=== PATIENT | female | born 1945 | race Caucasian/White ===

== ENCOUNTER → 2017-07-05 08:56 | Outpatient (CLI) | payer MEDICARE, BC, SELFPAY ==
--- NOTE | 2017-07-05 | DI.CT.S_ITS ---
PROCEDURE: CT PEL WO CON INDICATIONS: Right hip pain and leg pain TECHNIQUE: Noncontrast 3 mm axial sections acquired through the bony pelvis, with coronal and sagittal reformatting. COMPARISON: [facility], CT, CT PELVIS WITH CONTRAST, 06/13/2017, 15:23. [facility], CT, CT ABDOMEN PELVIS WITH CONTRAST, 06/07/2017, 15:48. [facility], CR, XR PELVIS WITH BILATERAL LATERAL HIPS, 06/06/2017, 16:58. FINDINGS: Image quality: Diagnostic. Bones: There is no acute fracture, dislocation, or suspicious osseous lesion identified involving the osseous structures of the pelvis. Specifically, the right hip is intact. The right pelvic bones are also intact. However, there are at least moderate degenerative changes noted involving the included lower lumbar spine. Mild to moderate degenerative changes of the sacroiliac joints, pubic symphysis, and bilateral hips are present. Soft tissues: A spinal stimulator apparatus is seen overlying the left gluteal region. Areas of subcutaneous edema are identified about the pelvis. No drainable or loculated fluid collections are evident. No subcutaneous soft tissue masses are evident. There is a very small fat containing periumbilical hernia. No inguinal hernias are evident. There is no free fluid, loculated fluid collection or free air within the pelvis. There is aortic and iliac artery atherosclerosis. The urinary bladder is grossly unremarkable, but not well evaluated. The uterus is surgically absent. The bowel loops are nondilated. No pelvic lymphadenopathy is identified. IMPRESSION: 1. Mild to moderate degenerative changes of the right hip without acute fracture. 2. Mild to moderate degenerative changes of the lumbosacral spine, left hip, and pubis symphysis. 3. Subcutaneous edema about the pelvis. No drainable or loculated fluid collections. Dictated by: Hank Morocho M.D. on 07/05/2017 at 8:55 Approved by: Hank Morocho M.D. on 07/05/2017 at 8:59
== END ==
PROVIDERS: Family Provider Internal Medicine; PCP Nurse Practitioner; Visit Provider Internal Medicine
DX: M16.0 Bilateral primary osteoarthritis of hip (principal); M51.37 Other intervertebral disc degeneration, lumbosacral region; R60.0 Localized edema
CPT/HCPCS: 72192

== ENCOUNTER 2017-07-10 15:48 | Emergency (ER) | payer MEDICARE, BC, MEDICAID, SELFPAY ==
[2017-07-10] VITALS (10 sets, daily range): BP systolic 96–112; BP diastolic 48–84; PULSE 97–111; RESP 16–18; TEMP 36.7; O2SAT 98–100; BMI 27.8
--- NOTE | 2017-07-10 17:04 | ED.WEAKNESS ---
HPI - Weakness <Lulu Grider PA-C - Last Filed: 07/10/17 22:06> General Chief complaint: Weakness Stated complaint: low BP Time Seen by Provider: 07/10/17 16:17 Source: patient and family Mode of arrival: EMS Limitations: no limitations History of Present Illness HPI Narrative: This 71-year-old patient with a history of hypertension, CAD, and emphysema is doing rehabilitation at a local assisted living facility due to hip pain and difficulty managing at home. She states she had been feeling fine today but apparently a [facility] staff noted her blood pressure was low. She is on blood pressure medication at home however this was discontinued a few days ago as her blood pressures had been on the low side. Patient admits that she tends not to drink any fluids and does not like drinking water, and has had problems with getting somewhat dehydrated in the past. She states she did eat lunch today. Currently, she denies any chest pain. She states that she has had some ongoing dyspnea with position changes, i.e. moving from sit to stand, but this seems to resolve on its own with just breathing through her nose. This is not acutely changed. She denies any new swelling or pain in her extremities. She denies any nausea, vomiting, abdominal pain or bowel habit changes, and she states she is not sure why she was sent here. Her daughter accompanies her and states that she has seemed normal today Related Data Home Medications Medication Instructions Recorded Confirmed cholecalciferol (vitamin D3) 400 unit PO DAILY #0 09/22/15 07/10/17 [Vitamin D3] albuterol sulfate [Ventolin HFA] 2 puff INHALATION Q6H PRN 07/10/17 07/10/17 ascorbic acid (vitamin C) 1,000 mg PO DAILY 07/10/17 07/10/17 aspirin 81 mg PO DAILY 07/10/17 07/10/17 atorvastatin 20 mg PO QPM 07/10/17 07/10/17 bisacodyl 5 - 10 mg PO PRN PRN 07/10/17 07/10/17 bisacodyl 10 mg DC DAILY 07/10/17 07/10/17 budesonide-formoterol [Symbicort] 2 puff INHALATION BID 07/10/17 07/10/17 calcium carbonate 1 tab PO BID 07/10/17 07/10/17 cyanocobalamin (vitamin B-12) 1,000 mcg PO DAILY 07/10/17 07/10/17 fluticasone [Flonase Allergy 1 spray INTRANASAL DAILY PRN 07/10/17 07/10/17 Relief] food supplemt, lactose-reduced 1 ea PO TID 07/10/17 07/10/17 [Boost] guaifenesin [Mucus Relief] 600 mg PO BID 07/10/17 07/10/17 lidocaine 1 patch TOPICAL DAILY 07/10/17 07/10/17 magnesium hydroxide [Milk of 30 ml PO DAILY PRN 07/10/17 07/10/17 Magnesia] multivitamin with minerals 1 tab PO DAILY 07/10/17 07/10/17 nystatin 1 applic TOPICAL QID 07/10/17 07/10/17 omeprazole 40 mg PO BID 07/10/17 07/10/17 ondansetron HCl 4 mg PO Q8H PRN 07/10/17 07/10/17 oxycodone 5 mg PO Q4H PRN 07/10/17 07/10/17 oxycodone 10 mg PO Q4H PRN 07/10/17 07/10/17 polyethylene glycol 3350 [Miralax] 1 dose PO DAILY PRN 07/10/17 07/10/17 potassium chloride 8 meq PO BID 07/10/17 07/10/17 sodium phosphates [Fleet Enema] 1 ea DC PRN PRN 07/10/17 07/10/17 tiotropium bromide [Spiriva with 1 cap INHALATION DAILY 07/10/17 07/10/17 HandiHaler] Previous Rx's Medication Instructions Recorded duloxetine 30 mg PO BID #180 cap 04/01/16 Allergies Allergy/AdvReac Type Severity Reaction Status Date / Time cat dander [CAT DANDER] Allergy Unknown Verified 07/10/17 16:18 Review of Systems <Lulu Grider PA-C - Last Filed: 07/10/17 22:06> Review of Systems All systems reviewed & are unremarkable except as noted in HPI and below Exam <Lulu Grider PA-C - Last Filed: 07/10/17 22:06> Narrative Exam Narrative: Standing blood pressure is 104/84 with stable pulses GENERAL APPEARANCE: Patient sitting comfortably, in no distress. NECK/THYROID: Neck supple, no JVD. LUNGS: Clear to auscultation bilaterally. HEART: Regular rate and rhythm without murmur, initially there are some single skips, then only occasional,,normal S1, S2, no S3 or S4. ABDOMEN: Soft, NT, ND, + BS x 4 quadrants EXTREMITIES: No cyanosis or edema. No calf tenderness NEUROLOGIC: Alert and oriented, normal speech, and coordination. Initial Vital Signs Initial Vital Signs: Vital Signs Temperature 98.1 F 07/10/17 15:58 Pulse Rate 106 H 07/10/17 15:58 Respiratory Rate 16 07/10/17 15:58 Blood Pressure 100/61 07/10/17 15:58 Pulse Oximetry 99 07/10/17 15:58 <Pradeep Maddox MD - Last Filed: 07/21/17 08:21> Initial Vital Signs Initial Vital Signs: Vital Signs Temperature 98.1 F 07/10/17 15:58 Pulse Rate 106 H 07/10/17 15:58 Respiratory Rate 16 07/10/17 15:58 Blood Pressure 100/61 07/10/17 15:58 Pulse Oximetry 99 07/10/17 15:58 Course <Lulu Grider PA-C - Last Filed: 07/10/17 22:06> Orders Ordered: Discontinued Medications Oxycodone/Acetaminophen (Percocet 5/325) 2 tab PO NOW ONE Stop: 07/10/17 18:37 Last Admin: 07/10/17 18:53 Dose: 2 tab Vital Signs - 8 hr 07/10/17 15:58 07/10/17 16:15 07/10/17 17:00 Temperature 98.1 F Pulse Rate 106 H 106 H 111 H Pulse Rate [Orthostatic Lying] Pulse Rate [Orthostatic Sitting] Pulse Rate [Orthostatic Standing] Respiratory Rate 16 16 16 Blood Pressure 100/61 Blood Pressure [Orthostatic Lying] Blood Pressure [Orthostatic Sitting] Blood Pressure [Orthostatic Standing] Blood Pressure [Right Arm] 102/51 L 96/48 L Pulse Oximetry 99 98 99 07/10/17 18:00 07/10/17 18:30 07/10/17 19:00 Temperature Pulse Rate 102 H 99 H Pulse Rate [Orthostatic Lying] 103 H Pulse Rate [Orthostatic Sitting] 106 H Pulse Rate [Orthostatic Standing] 102 H Respiratory Rate 18 16 Blood Pressure Blood Pressure [Orthostatic Lying] 112/82 H Blood Pressure [Orthostatic Sitting] 112/84 H Blood Pressure [Orthostatic Standing] 108/84 H Blood Pressure [Right Arm] 106/53 L 99/50 L Pulse Oximetry 99 99 07/10/17 19:25 07/10/17 20:00 07/10/17 21:40 Temperature Pulse Rate 104 H 108 H 97 H Pulse Rate [Orthostatic Lying] Pulse Rate [Orthostatic Sitting] Pulse Rate [Orthostatic Standing] Respiratory Rate 16 17 18 Blood Pressure Blood Pressure [Orthostatic Lying] Blood Pressure [Orthostatic Sitting] Blood Pressure [Orthostatic Standing] Blood Pressure [Right Arm] 99/50 L 100/65 97/78 Pulse Oximetry 100 98 99 <Pradeep Maddox MD - Last Filed: 07/21/17 08:21> Orders Ordered: Discontinued Medications Oxycodone/Acetaminophen (Percocet 5/325) 2 tab PO NOW ONE Stop: 07/10/17 18:37 Last Admin: 07/10/17 18:53 Dose: 2 tab Vital Signs - 8 hr 07/10/17 15:58 07/10/17 16:15 07/10/17 17:00 Temperature 98.1 F Pulse Rate 106 H 106 H 111 H Pulse Rate [Orthostatic Lying] Pulse Rate [Orthostatic Sitting] Pulse Rate [Orthostatic Standing] Respiratory Rate 16 16 16 Blood Pressure 100/61 Blood Pressure [Orthostatic Lying] Blood Pressure [Orthostatic Sitting] Blood Pressure [Orthostatic Standing] Blood Pressure [Right Arm] 102/51 L 96/48 L Pulse Oximetry 99 98 99 07/10/17 18:00 07/10/17 18:30 07/10/17 19:00 Temperature Pulse Rate 102 H 99 H Pulse Rate [Orthostatic Lying] 103 H Pulse Rate [Orthostatic Sitting] 106 H Pulse Rate [Orthostatic Standing] 102 H Respiratory Rate 18 16 Blood Pressure Blood Pressure [Orthostatic Lying] 112/82 H Blood Pressure [Orthostatic Sitting] 112/84 H Blood Pressure [Orthostatic Standing] 108/84 H Blood Pressure [Right Arm] 106/53 L 99/50 L Pulse Oximetry 99 99 07/10/17 19:25 07/10/17 20:00 07/10/17 21:40 Temperature Pulse Rate 104 H 108 H 97 H Pulse Rate [Orthostatic Lying] Pulse Rate [Orthostatic Sitting] Pulse Rate [Orthostatic Standing] Respiratory Rate 16 17 18 Blood Pressure Blood Pressure [Orthostatic Lying] Blood Pressure [Orthostatic Sitting] Blood Pressure [Orthostatic Standing] Blood Pressure [Right Arm] 99/50 L 100/65 97/78 Pulse Oximetry 100 98 99 MDM - Weakness <Lulu Grider PA-C - Last Filed: 07/10/17 22:06> Lab Data Attestation: I reviewed the patient's lab results. Result diagrams: 07/10/17 19:10 07/10/17 19:10 Lab Results 07/10/17 07/10/17 07/10/17 Range/Units 19:00 19:10 19:10 WBC 11.9 H (4.5-11.0) X10^3/uL RBC 4.04 (4.0-5.2) X10^6/uL Hgb 13.9 (12.0-16.0) g/dL Hct 40.6 (36-46) % MCV 100.4 H (80-100) fL MCH 34.3 H (26-34) PG MCHC 34.2 (30-36) % RDW 12.6 (11.6-14.8) % Plt Count 158 (150-400) X10^3/uL Neut % (Auto) 63.0 (50-75) % Lymph % (Auto) 26.5 (25-40) % [place] % (Auto) 9.5 (3-14) % Eos % (Auto) 0.4 L (2-4) % Baso % (Auto) 0.6 (0-2) % Neut # (Auto) 7500 H (7390-1835) /uL Sodium 137 (137-145) mmol/L Potassium 3.5 (3.4-5.1) mmol/L Chloride 103.0 (98-107) mmol/L Carbon Dioxide 23.0 (22-32) mmol/L BUN 13.0 (7-17) mg/dL Creatinine 0.50 L (0.52-1.04) mg/dL Estimated GFR > 60.0 (>60) mL/min BUN/Creatinine Ratio 26.0 H (6-22) Glucose 79 L (80-110) mg/dL Calcium 7.1 L (8.4-10.2) mg/dL Magnesium 1.0 L (1.6-2.3) mg/dL Total Protein 5.1 L (6.3-8.2) g/dL Albumin 2.3 L (3.5-5.0) g/dL ECG Data Attestation: I personally reviewed and interpreted this ECG as follows: Prior ECG tracings: not available for review Interpretation: EKG #1 sinus tachycardia, rate 102, left axis deviation, evidence of old inferior DE with Q-waves, QTC upper limit of normal. EKG 2. Sinus tachycardia, rate 111, normal QT. No acute changes aside from single PVC. Patient is asymptomatic MDM Narrative Medical decision making narrative: Patient denied any acute symptoms. She stated that she was feeling well today, and her daughter agreed that she appeared normal. Patient is eating and drinking normally here. I spoke with Dr. Spicer regarding electrolyte abnormalities including low calcium correlating with her low albumin level. Her magnesium is also low. Reviewed EKG findings. She is mildly tachycardic however her beta-gage was stopped due to relatively low blood pressures in the last few days and this may be related. Pulse down to 97 prior to d/c. Her blood pressures appear to be typical of what she has had at the nursing home facility, including stable standing blood pressure. Will discharge back to nursing home and Dr. Spicer will monitor. Order written for magnesium supplementation. <Pradeep Maddox MD - Last Filed: 07/21/17 08:21> Lab Data Lab Results 07/10/17 07/10/17 07/10/17 Range/Units 19:00 19:10 19:10 WBC 11.9 H (4.5-11.0) X10^3/uL RBC 4.04 (4.0-5.2) X10^6/uL Hgb 13.9 (12.0-16.0) g/dL Hct 40.6 (36-46) % MCV 100.4 H (80-100) fL MCH 34.3 H (26-34) PG MCHC 34.2 (30-36) % RDW 12.6 (11.6-14.8) % Plt Count 158 (150-400) X10^3/uL Neut % (Auto) 63.0 (50-75) % Lymph % (Auto) 26.5 (25-40) % [place] % (Auto) 9.5 (3-14) % Eos % (Auto) 0.4 L (2-4) % Baso % (Auto) 0.6 (0-2) % Neut # (Auto) 7500 H (8102-6824) /uL Sodium 137 (137-145) mmol/L Potassium 3.5 (3.4-5.1) mmol/L Chloride 103.0 (98-107) mmol/L Carbon Dioxide 23.0 (22-32) mmol/L BUN 13.0 (7-17) mg/dL Creatinine 0.50 L (0.52-1.04) mg/dL Estimated GFR > 60.0 (>60) mL/min BUN/Creatinine Ratio 26.0 H (6-22) Glucose 79 L (80-110) mg/dL Calcium 7.1 L (8.4-10.2) mg/dL Magnesium 1.0 L (1.6-2.3) mg/dL Total Protein 5.1 L (6.3-8.2) g/dL Albumin 2.3 L (3.5-5.0) g/dL Discharge Plan Departure Patient Disposition: Home, Self-Care Clinical Impression: Tachycardia, Hypocalcemia, Hypomagnesemia Discharge Date/Time: 07/10/17 22:04 Interventions: ED Discharge Assessment Last Done: 07/10/17 22:03 Instructions: DI for Tachycardia Activity Restrictions/Additional Instructions: Your heart rate is a little bit high here today even though you are feeling well. This may be from recently stopping your blood pressure medicine. Your blood pressures appear to be at your baseline, and since you are not having symptoms Dr. Spicer will monitor you at [facility]. Your calcium and magnesium were low today and I have written an order for magnesium supplement. Dr. Spicer will have you continue your calcium and vitamin D and monitor your labwork. Prescriptions: No Action cholecalciferol (vitamin D3) [Vitamin D3] 400 unit Tablet 400 unit PO DAILY Qty: 0 RF: 0 duloxetine 30 MG capsule,delayed release(DR/EC) 30 mg PO BID Qty: 180 RF: 1 atorvastatin 20 mg Tablet 20 mg PO QPM RF: 0 cyanocobalamin (vitamin B-12) 1,000 mcg Tablet 1,000 mcg PO DAILY RF: 0 aspirin 81 mg Tablet,Delayed Release (Dr/Ec) 81 mg PO DAILY RF: 0 polyethylene glycol 3350 [Miralax] 17 gram/dose Powder 1 dose PO DAILY PRN (Reason: Constipation) RF: 0 tiotropium bromide [Spiriva with HandiHaler] 18 mcg capsule, w/inhalation device 1 cap Inhalation DAILY RF: 0 multivitamin with minerals 1 tab PO DAILY RF: 0 ascorbic acid (vitamin C) 1,000 mg Tablet 1,000 mg PO DAILY RF: 0 potassium chloride 8 mEq capsule, extended release 8 meq PO BID RF: 0 omeprazole 40 mg capsule,delayed release(DR/EC) 40 mg PO BID RF: 0 lidocaine 5 % Adhesive Patch,Medicated 1 patch TOPICAL DAILY RF: 0 nystatin 100,000 unit/gram Powder 1 applic TOPICAL QID RF: 0 guaifenesin [Mucus Relief] 400 mg Tablet 600 mg PO BID RF: 0 budesonide-formoterol [Symbicort] 160-4.5 mcg/actuation HFA aerosol inhaler 2 puff Inhalation BID RF: 0 food supplemt, lactose-reduced [Boost] 0.04 gram- 1 kcal/mL Liquid 1 ea PO TID RF: 0 calcium carbonate 1 tab PO BID RF: 0 ondansetron HCl 4 mg Tablet 4 mg PO Q8H PRN (Reason: Nausea And Vomiting) RF: 0 magnesium hydroxide [Milk of Magnesia] 400 mg/5 mL Suspension 30 ml PO DAILY PRN (Reason: Constipation) RF: 0 bisacodyl 10 mg Suppository 10 mg DC DAILY RF: 0 sodium phosphates [Fleet Enema] 19-7 gram/118 mL Enema 1 ea DC PRN PRN (Reason: Constipation) RF: 0 albuterol sulfate [Ventolin HFA] 90 mcg/actuation Hfa Aerosol Inhaler 2 puff INHALATION Q6H PRN (Reason: Wheezing) RF: 0 fluticasone [Flonase Allergy Relief] 50 mcg/actuation [place],Suspension 1 spray INTRANASAL DAILY PRN (Reason: Sinus Symptoms) RF: 0 oxycodone 5 mg Tablet 10 mg PO Q4H PRN (Reason: Pain (Scale Score 7-10)) RF: 0 oxycodone 5 mg Tablet 5 mg PO Q4H PRN (Reason: Pain (Scale Score 4-6)) RF: 0 bisacodyl 5 mg Tablet 5 - 10 mg PO PRN PRN (Reason: Constipation) RF: 0 Referrals: Cheryl Spicer MD [Family Provider] - <Pradeep Maddox MD - Last Filed: 07/21/17 08:21> Cosign ED Attending Cosignature Attestation: The PA/ELECTRONICS SPECIALIST functioned independently for the care of this pt, I was available, but not asked to participate in care. I am unable to determine appropriateness of management without personally examining the pt.
[2017-07-10] MEDS: OXYCODONE/ACETAMINOPHEN 5/325 TABLET 2 TAB PO (18:53)
[2017-07-10 19:28] LABS: Add Manual Diff / Slide Review NO; Basophils Percent Auto 0.6 % (0-2); Eosinophils Percent Auto 0.4 % (2-4); Hematocrit 40.6 % (36-46); Hemoglobin 13.9 g/dL (12.0-16.0); Lymphocytes Percent Auto 26.5 % (25-40); Mean Corpuscular HGB Conc 34.2 % (30-36); Mean Corpuscular Hemoglobin 34.3 PG (26-34); Mean Corpuscular Volume 100.4 fL (80-100); Monocytes Percent Auto 9.5 % (3-14); Neutrophils Absolute Auto 7500 /uL (3000-5900); Platelet Count 158 X10^3/uL (150-400); Red Blood Cell Count 4.04 X10^6/uL (4.0-5.2); Red Cell Distribution Width 12.6 % (11.6-14.8); White Blood Cell Count 11.9 X10^3/uL (4.5-11.0)
[2017-07-10 19:34] LABS: Calcium 7.1 mg/dL (8.4-10.2); Estimated Glomerular Filt Rate > 60.0 mL/min (>60); Glucose 79 mg/dL (80-110); HEMOLYSIS 27 (0-50); Potassium 3.5 mmol/L (3.4-5.1); Sodium 137 mmol/L (137-145)
--- NOTE | 2017-07-10 20:01 | PC.NURSE ---
Patient report some shortness of breath upon standing and tightness in chest. Denies any dizziness. States this has been happening when I stand for a while now but it gets better after a few minutes.
[2017-07-10 20:23] LABS: Albumin 2.3 g/dL (3.5-5.0); Total Protein 5.1 g/dL (6.3-8.2)
--- NOTE | 2017-07-10 22:01 | PC.NURSE ---
Patient with BP that was low per facility at 75/50 and heart rate of 120bpm. Patient has BP of 95/60 systolic with heart rate that fluctuates from 95-105. Denies any dizziness or symptoms with this.
== END 2017-07-10 22:04 | disposition home or self-care (01) ==
PROVIDERS: Emergency Provider Internal Medicine; Family Provider Internal Medicine; PCP Nurse Practitioner
DX: R00.0 Tachycardia, unspecified (principal)
CPT/HCPCS: 36415; 80048; 82040; 83735; 84155; 85025; 93005; 93041; 99284; 99285

== ENCOUNTER → 2017-08-18 14:57 | Outpatient (REF) | payer SELFPAY ==
[2017-08-18 16:34] LABS: Adenovirus F 40/41 Not Detected (Not Detect); Astrovirus Not Detected (Not Detect); Campylobacter Not Detected (Not Detect); Clostridium difficile toxin AB Not Detected (Not Detect); Cryptosporidium Not Detected (Not Detect); Cyclospora cayetanensis Not Detected (Not Detect); Entamoeba histolytica Not Detected (Not Detect); Enteroaggregative E.coli Not Detected (Not Detect); Enteropathogenic E.coli Not Detected (Not Detect); Enterotoxigenic E.coli It/st Not Detected (Not Detect); Giardia lamblia Not Detected (Not Detect); Norovirus GI/GII Not Detected (Not Detect); Plesiomonsa shigelloides Not Detected (Not Detect); Rotavirus A Not Detected (Not Detect); Salmonella Not Detected (Not Detect); Sapovirus Not Detected; Shiga-like toxin-prod E.coli Not Detected (Not Detect); Shigella/Enteroinvasive E.coli Not Detected (Not Detect); Vibrio Not Detected (Not Detect); Vibrio cholerae Not Detected (Not Detect); Yersinia enterocolitica Not Detected (Not Detect)
== END ==
LOC: LAB 14:57
PROVIDERS: Family Provider Internal Medicine; PCP Nurse Practitioner; Visit Provider Internal Medicine
DX: R19.5 Other fecal abnormalities (principal); R19.7 Diarrhea, unspecified
CPT/HCPCS: 87507

== ENCOUNTER → 2017-08-21 12:05 | Outpatient (REF) | payer MEDICARE, BC, SELFPAY | LOC: LAB 12:05 | PROVIDERS: Family Provider Internal Medicine; PCP Nurse Practitioner; Visit Provider Internal Medicine | DX: E83.42 Hypomagnesemia (principal) ==

== ENCOUNTER → 2017-09-21 02:03 | Outpatient (REF) | payer MEDICARE, SELFPAY ==
[2017-09-21 02:11] LABS: Appearance Urine UA CLOUDY; Bilirubin Urine UA NEGATIVE (NEGATIVE); Color Urine UA YELLOW; Glucose Urine UA NEGATIVE (Normal); Ketones Urine UA TRACE (NEGATIVE); Leukocyte Esterase Urine UA 1+ (NEGATIVE); Nitrite Urine UA POSITIVE (Negative); Occult Blood Urine UA 1+ (Negative); Protein Urine UA NEGATIVE (Negative); Specific Gravity Urine UA >=1.030 (1.000-1.035); Urobilinogen Urine UA 0.2 E.U./dL (0.2)
[2017-09-21 02:19] LABS: RBC Urine 0-1/HPF (0-5/HPF)
[2017-09-21 02:20] LABS: Bacteria Urine Many (>30); Calcium Oxalate Crystals Urine Few; Squamous Epithelial Cell Urine 1-5 /HPF; WBC Urine 5-10/HPF (0-5/HPF)
[2017-09-21 02:21] LABS: Culture Indicated Urine Specimen Cultured
== END ==
LOC: LAB 02:03
PROVIDERS: Family Provider Internal Medicine; PCP Nurse Practitioner; Visit Provider Nurse Practitioner
DX: R30.0 Dysuria (principal)
CPT/HCPCS: 81001; 87077; 87086; 87186

== ENCOUNTER → 2017-10-04 13:21 | Outpatient (CLI) | payer MEDICARE, BC, MEDICAID, SELFPAY ==
--- NOTE | 2017-10-04 | OV.WND_ITS ---
Progress Note Details Patient Name: Tamela Romero Patient Number: [id number] PatientPatientDate: 10/04/2017 Clinician: Nan Garner Physician / Physician Relations Specialist: Robert Betancourt SUBJECTIVE Chief Complaint This information was obtained from the patient Allergies methadone, cat dander, Topamax HPI This information was obtained from the patient 10/04/17. Seen by Dr. Betancourt. 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 She states the ulcer's been present since he beginning of this year but appears to be nearly healed. Family History This information was obtained from the patient Cancer - Mother, Heart Disease - Father Social History This information was obtained from the patient Former smoker - 1990, Children - 1, Lives in - [facility], Marital Status - , Retired - Administrative Past Medical History This information was obtained from the chart Patient has a medical history of: Chronic Pain Atherosclerotic Heart Disease Major Depressive Disorder Neuropathy Chronic Obstructive Pulmonary Disease (COPD) Hypertension Hyperlipidemia Peripheral Vascular Disease Surgical History This information was obtained from the patient Patient has a surgical history of: Tonsilectomy Appendectomy Cholecsytectomy Lap Band Gastric Bypass Right second hammer toe repair Hysterectomy Bilateral Shoulder repair Complaints and Symptoms This information was obtained from the patient Patient complains of: General Notes: I have reviewed and concur with the Review of Systems and Past Family Social History documents completed by the clinician, I have reviewed and concur with the Wound Assessment document completed by the clinician Musculoskeletal: Deformities, Muscle Wasting Patient denies complaints or symptoms related to: Integumentary (Hair/Skin/Nails): Open Sore Respiratory: Shortness of Breath General Notes: up to date per patient Medications loperamide 2 mg tablet oral tablet oral every 4-6 hours as needed Zofran 4 mg tablet oral tablet oral every 6-8 hours as needed atorvastatin 20 mg tablet oral tablet oral once daily Ventolin HFA 90 mcg/actuation aerosol inhaler inhalation HFA aerosol inhaler inhalation once daily Symbicort 160 mcg-4.5 mcg/actuation HFA aerosol inhaler inhalation HFA aerosol inhaler inhalation budesonide 0.25 mg/2 mL suspension for nebulization inhalation suspension for nebulization inhalation twice daily oxycodone-acetaminophen 7.5 mg-325 mg tablet oral tablet oral every 4-6 hours as needed Aspir-81 81 mg tablet,delayed release oral tablet,delayed release (DR/EC) oral once daily Cymbalta 30 mg capsule,delayed release oral capsule,delayed release(DR/EC) oral once daily cyanocobalamin (vit B-12) 1,000 mcg tablet oral tablet oral once daily OBJECTIVE Constitutional Vital signs reviewed and noted. Frail appearing. Height/Length: 61 in (154.94 cm ), Weight: 147.2 lbs (66.91 kgs), BMI: 27.8, Temperature: 98.1 ?F (36.72 ?C), Pulse: 88 bpm , Respiratory Rate: 18 breaths/min, Blood Pressure: 100/55 mmHg, Pulse Oximetry: 95 %. Ears, Nose, Mouth, and Throat: No clinically significant hearing loss on informal examination. Musculoskeletal: Right plantar 1st MTPJ callus. Integumentary (Hair, Skin) Refer to appropriate clinician wound documentation for this visit.. Neurological: Cranial nerves grossly intact with symmetric function normal by informal observation.. ASSESSMENT Active Problems ICD-10 (Encounter Diagnosis) L84 - Corns and callosities PLAN Additional Orders: Compression/Edema Control Elevation of leg(s) above the level of the heart when sitting. Single Layer Compression Hose - Tetra E. Please wear compression hose daily. May take off at night. Follow-Up Appointments Other information: If you develop fever, chills, increased pain, drainage, redness or swelling please call our office. If after hours, respond to the ER. Should you experience any significant changes in your wound(s) or have any questions regarding your home care instructions please contact the wound center @ [phone]. If after hours, contact your primary care physician or go to the hospital emergency room. Discharge from Outpatient Services. - No wounds at this time Scribing Attestation I attest, as the nurse, that I scribed these orders for the physician. General Notes: Please follow up with your primary care regarding Lasix and water retention. I've reviewed the clinician's documentation and agree with the evaluation and plan as written. Electronic Signature(s) Signed By: Date: Robert Betancourt MD 10/05/2017 06:27:44 Entered By: Robert Betancourt on 10/05/2017 06:19:31
== END ==
PROVIDERS: Family Provider Internal Medicine; PCP Nurse Practitioner; Visit Provider Internal Medicine
DX: L84 Corns and callosities (principal); I10 Essential (primary) hypertension; G90.9 Disorder of the autonomic nervous system, unspecified
CPT/HCPCS: 99213